=== PATIENT | female | born 1955 | race African-American/Black ===

== ENCOUNTER 2018-02-26 11:18 | Emergency (ER) | payer SELFPAY ==
[~2018-02-26] VITALS: Ht 172.7 cm; Wt 104.3 kg
[2018-02-26] MEDS ORDERED: Methocarbamol 750mg tab ORAL ONE (11:45)
[2018-02-26] MEDS ORDERED: Acetaminophen 500mg (ES) tab ORAL ONE (11:45)
[2018-02-26 12:05] VITALS: BP 129/78
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
[2018-02-26] MEDS ORDERED: LIDODERM700 M1 TOPIC (12:11)
[2018-02-26] MEDS ORDERED: ROBAXIN-750750 MG PO (12:11)
[2018-02-26] MEDS ORDERED: IBUPROFEN600 MG ORAL (12:11)
[2018-02-26 12:26] VITALS: BP 129/78
== END 2018-02-26 12:27 | disposition home or self-care (01) ==
LOC: EMR 11:48
DX: M54.2 Cervicalgia (principal); M54.9 Dorsalgia, unspecified; V49.9XXA Car occupant (driver) (passenger) injured in unspecified traffic accident, initial encounter; Y93.9 Activity, unspecified; Y92.9 Unspecified place or not applicable; I10 Essential (primary) hypertension
CPT/HCPCS: 99283

== ENCOUNTER 2018-09-05 08:02 | Emergency (ER) | payer OTHER ==
[~2018-09-05] VITALS: Ht 152.4 cm; Wt 86.2 kg
[~2018-09-05 08:02] MED LIST: IBUPROFEN600 MG ORAL; LIDODERM700 M1 TOPIC; ROBAXIN-750750 MG PO
[2018-09-05] MEDS ORDERED: AMLODIPINE BESYL5 MG ORAL (08:19)
[2018-09-05] MEDS ORDERED: HYDROCHLOROTHIA25 MG ORAL (08:19)
[2018-09-05 08:23] VITALS: BP 137/92
--- NOTE | 2018-09-05 08:24 | NUR ---
ED Nurse Note: pt walked in due to skin rash on the anterior neck, pt stated it was from a spider bite but pt denies seeing the spider. pt denies pain,pt stated that the part is itchy. will continue to monitor.
--- NOTE | 2018-09-05 08:38 | Emergency Room Report ---
History of Present Illness General Chief Complaint: Skin Rash/Abscess Source: Patient Present Illness HPI Itchy bump in neck appeared this morning. Used rubbing alcohol. No fevers. Denies pain to me (reported 09/19 to lining caser). Slightly dizzy with concern. Tetanus UTD. No problems breathing or swallowing. No DM HTN on meds. Allergies: Coded Allergies: No Known Allergies (Unverified , 02/26/18) Patient History Past Medical History: see triage record Social History: Denies: smoking Social History Narrative from home Last Menstrual Period: na Reviewed Nursing Documentation: PMH: Agreed; PSxH: Agreed Nursing Documentation-PMH Past Medical History: No History, Except For Hx Hypertension: Yes Review of Systems Constitutional: Reports: see HPI Respiratory: Denies: shortness of breath Cardiovascular: Denies: chest pain Gastrointestinal: Denies: nausea Musculoskeletal: Reports: see HPI Skin: Reports: see HPI Neurological: Reports: see HPI Physical Exam Vital Signs Date Time Temp Pulse Resp B/P (MAP) Pulse Ox O2 Delivery O2 Flow Rate FiO2 09/05/18 08:14 98.2 65 20 137/92 (107) 98 Room Air Sp02 EP Interpretation: reviewed, normal General Appearance: well appearing, no apparent distress, GCS 15 Head: normocephalic, atraumatic Eyes: bilateral eye normal inspection, bilateral eye PERRL ENT: hearing grossly normal, normal voice, moist mucus membranes Neck: full range of motion, supple, other - 1X1 cm raised area, no fluctuance, minimal erythema Respiratory: no respiratory distress, speaking full sentences Cardiovascular #1: regular rate, rhythm Cardiovascular #2: 2+ radial (R) Gastrointestinal: normal inspection, overweight Musculoskeletal: gait/station normal Neurologic: alert, normal gait, grossly normal Psychiatric: mood/affect normal Skin: other - see neck Medical Decision Making Diagnostic Impression: Primary Impression: Insect bite Qualified Codes: S10.16XA - Insect bite (nonvenomous) of throat, initial encounter; W57.XXXA - Bitten or stung by nonvenomous insect and other nonvenomous arthropods, initial encounter ER Course Patient presents with a lesion on her neck. Clinical appearance is that of his spider bite. Differential also includes cellulitis amongst others. Local treatment is indicated. There is no evidence of any abscess at this time. Patient has no systemic response to the bite. Patient given Benadryl and bacitracin here. Discussed local care with patient then return if not helping. Patient stable for outpatient observation and treatment. Last Vital Signs Date Time Temp Pulse Resp B/P (MAP) Pulse Ox O2 Delivery O2 Flow Rate FiO2 09/05/18 08:46 98.2 65 20 137/92 98 Room Air Status: improved Disposition: HOME, SELF-CARE Condition: Improved Scripts Diphenhydramine Hcl* (BENADRYL*) 25 Mg Capsule 25 MG ORAL Q6H PRN for Itching, #14 CAP Prov: Noam Mendoza MD 09/05/18 Hydrocortisone/Aloe Vera 1%* (HYDROCORTISONE-ALOE 1% CREAM*) Y Cr 1 APPLIC TOPIC Q6H PRN for Itching, #30 GM Prov: Noam Mendoza MD 09/05/18 Bacitracin (Bacitracin) 28.4 Gm Oint...g. 1 APPLIC TOPIC BID, #10 GM Prov: Noam Mendoza MD 09/05/18 Referrals: [facility],REFERRING (PCP) Noam Mendoza MD September 05, 2018 08:38
[2018-09-05] MEDS ORDERED: BACITRACIN15 GM TOPIC (08:42)
[2018-09-05] MEDS ORDERED: HYDROCORTISONE-30 GM TOPIC (08:42)
[2018-09-05] MEDS ORDERED: BENADRYL25 MG ORAL (08:42)
--- NOTE | 2018-09-05 08:42 | NUR ---
ED Nurse Note: pt was seen by candis, pt medicated and tolerated well.
[2018-09-05] MEDS ORDERED: Bacitracin Oint UD TOPIC ONE (08:45)
[2018-09-05 08:46] VITALS: BP 137/92
--- NOTE | 2018-09-05 08:46 | NUR ---
ER DISCHARGE NOTE: Patient is cleared to be discharged per ERMD, pt is aox4, on room air, with stable vital signs. pt was given dc and prescription instructions, pt was able to verbalize understanding, pt id band removed without complications. pt is able to ambulate with steady gait. pt took all belongings.
== END 2018-09-05 08:46 | disposition home or self-care (01) ==
LOC: EMR 08:28
DX: S10.16XA Insect bite (nonvenomous) of throat, initial encounter (principal); W57.XXXA Bitten or stung by nonvenomous insect and other nonvenomous arthropods, initial encounter; I10 Essential (primary) hypertension; Z79.899 Other long term (current) drug therapy
CPT/HCPCS: 99282